=== PATIENT | female | born 1990 | race Caucasian/White ===

== ENCOUNTER 2017-03-21 08:26 | Inpatient (IN) | payer OTHER ==
[~2017-03-21] VITALS: Ht 177.8 cm; Wt 118.0 kg
--- NOTE | 2017-03-28 08:59 | NUR ---
03/28/17 0859 Leah Alicea 0764-PATIENT ARRIVED TO PACU ON RA O2 SAT 95% PATIENT AWAKE DENIES PAIN NAUSEA. DRESSING CDI TO ABDOMEN FUNDUS AT UMBILICUS LIGHT RUBRA DRAINAGE. IV TO LEFT HAND INFUSING WITH LR AND PITOCIN. CHATMAN DRAINING. DAD AT BEDSIDE.
[2017-03-29] MEDS ORDERED: PRENATAL VITAM1 EAC7 PO (04:08)
--- NOTE | 2017-04-24 12:30 | OR ---
[facility] [address] [place], [place] [address] Signed DATE OF OPERATION: 03/28/2017 SURGEON: Thelma Reagan DO. DESULPHURIZER OPERATOR: Ever Malin MD. PREOPERATIVE DIAGNOSES: Term intrauterine . History of prior section. Obesity complicating . POSTOPERATIVE DIAGNOSES: Term intrauterine . History of prior section. Obesity complicating . PROCEDURE PERFORMED: Repeat low transverse section. ANESTHESIA: Spinal. ESTIMATED BLOOD LOSS: 500 mL. COMPLICATIONS: None. FINDINGS: Normal tubes and ovaries bilaterally. Very thin lower uterine segment repaired in two imbricating layers. Viable male born in the VENKAT position with Apgars of 9 and 9 at one and five minutes respectively. Weight is pending. Prior Pfannenstiel skin incision with significant keloid that was excised. COMPLICATIONS: None. INDICATIONS: Ms. Dueñas is a very pleasant 26-year- old, G2, P1, with term intrauterine who presents for scheduled repeat low transverse section. Risks, benefits, and alternatives were discussed in detail with the patient. The patient understands and wished to proceed with the procedure. TECHNIQUE: The patient was taken the operating room. Time-out was performed confirming correct Electronically Signed By: THELMA REAGAN DO 04/24/17 1230 PATIENT NAME: ANGEL DUEÑAS OPERATIVE REPORT DATE OF : 86 PHYSICIAN: THELMA REAGAN DO REPORT #: [id number] REPORT IS CONFIDENTIAL AND NOT TO BE RELEASED WITHOUT AUTHORIZATION [facility] [address] [place], [place] [address] Signed patient, correct procedure. Spinal anesthesia was adequately established. The patient was prepped and draped in the supine position with a bump under the right hip. Ancef 3 g were given preoperatively. ICPs were on and running, no preop heparin was indicated. After testing to ensure spinal anesthesia was adequate, a Pfannenstiel skin incision was made ellipsing out the prior keloid Pfannenstiel scar. Incision was carried down to the fascia in the midline and the fascia was nicked using a surgical scalpel. The fascial incision was extended bilaterally using curved Vale scissors. The fascia was grasped with Houston's and the underlying rectus muscle dissected bluntly and sharply without complication. The rectus muscles were divided in the midline bluntly and the peritoneal was entered sharply . Peritoneal incision was extended using Metzenbaum scissors and blunt dissection. An Gabriel self-retractor was then placed and lower uterine segment was identified and found to be thin. Hysterotomy was performed using a surgical scalpel. Thin clear amniotic fluid was noted. Hysterotomy was extended bilaterally using blunt dissection and the surgeon's hand was placed into the lower uterine segment. The head was elevated in the abdomen and delivered with the assistance of fundal pressure. Loose nuchal cord x1 was identified and reduced without difficulty. The remainder of the delivered with the assistance of fundal pressure without complication. Upon delivery, the was vigorous and cried and the oral nasopharynx were bulb suctioned. The cord was doubly clamped and cut and the handed to the awaiting pediatric team for further care. Cord blood was obtained for routine analysis and the placenta was manually expressed intact with a centrally inserted 3-vessel cord. The uterus was cleared of any remaining products of conception and T clamps were placed in the lower uterine segment and in the corners bilaterally. The uterus was then repaired using 0 Vicryl in a running locked suture. The uterus was noted to be very thin and the lower segment tore easily. The uterus was exteriorized in order to remove tension from the lower uterine segment and to prevent tearing. A second imbricating suture of 0 Monocryl was then applied with good reapproximation hemostasis. One small figure-o f -eight was placed in the midline for a small amount of oozing that was made hemostatic. The pelvis was irrigated and again the incision was found to be hemostatic. Normal tubes and ovaries were identified bilaterally. The uterus was replaced and the perineum was reapproximated with 2-0 Vicryl after placing ACell sheet over the lower uterine segment. The rectus muscles were reapproximated using interrupted sutures of 0 Vicryl. ACell powder was applied to the rectus muscle and rectus muscle was found to be h e mostatic. The fascia was reapproximated using 0 Vicryl in a running, nonlocked manner. ACell powder was applied to the subcutaneous tissue after ensuring hemostasis with Bovie electrocautery and irrigation. The subcutaneous space was reapproximated in 2 layers of 3-0 Vicryl in a running, nonlocked manner. Skin was then reapproximated using Quill suture in a subcuticular stitch with good hemostasis and cosmesis. Cordran tape was applied over the wound to prevent keloid formation. The uterus was then Crede'd for scant blood. The patient was taken to PACU in good and stable condition with her . Electronically Signed By: THELMA REAGAN DO 04/24/17 1230 PATIENT NAME: ANGEL DUEÑAS OPERATIVE REPORT DATE OF : 86 PHYSICIAN: THELMA REAGAN DO REPORT #: [id number] REPORT IS CONFIDENTIAL AND NOT TO BE RELEASED WITHOUT AUTHORIZATION [facility] [address] [place] [address] Signed Sponge, needle, and instrument count was correct x2 at the end the procedure. Dr. Malin was present and participated in all portions of procedure. Thelma Reagan DO JDW/Modl /[id number] Electronically Signed By: THELMA REAGAN DO 04/24/17 1230 PATIENT NAME: JETTANGELShea MIRAMONTES OPERATIVE REPORT DATE OF : 86 PHYSICIAN: THELMA REAGAN DO REPORT #: [id number] REPORT IS CONFIDENTIAL AND NOT TO BE RELEASED WITHOUT AUTHORIZATION
== END 2017-03-30 12:42 | disposition home or self-care (01) | DRG 766 ==
LOC: FBC 03-28 05:02
PROVIDERS: ADMIT Obstetrics & Gynecology
PROC: 10D00Z1 Extraction of Products of Conception, Low, Open Approach (ICD-10-PCS; principal; 2017-03-28 06:45)
DX: O34.211 Maternal care for low transverse scar from previous cesarean delivery (principal); O99.214 Obesity complicating childbirth; O69.81X0 Labor and delivery complicated by cord around neck, without compression, not applicable or unspecified; Z3A.40 40 weeks gestation of pregnancy; Z37.0 Single live birth
CPT/HCPCS: 01961; 36415; 85027; C1763; J0690; J1644; J1885; J2274; J2370; J2405; J2550; J2590; J3010; J7120

== ENCOUNTER 2017-07-10 05:35 | Day surgery (SDC) | payer OTHER ==
[~2017-07-10] VITALS: Ht 177.8 cm; Wt 108.9 kg
[~2017-07-10 05:35] MED LIST: PRENATAL VITAM1 EAC7 PO
--- NOTE | 2017-07-10 09:11 | NUR ---
07/10/17 0911 Christina Olmos 0897 PT WALKED INTO PACU WITH CULVERT INSTALLER. NO 3 LEAD NEEDED AND BLOCK RESOLVED PER CULVERT INSTALLER. PT DENINES PAIN AND NAUSEA. 0903 MD AT BEDSIDE TALKING WITH PT.
--- NOTE | 2017-08-26 10:30 | OR ---
[facility] [address] [place], [place] [address] Signed DATE OF OPERATION: 07/10/2017 SURGEON: Thelma Reagan DO PREOPERATIVE DIAGNOSIS: Left periurethral cyst. POSTOPERATIVE DIAGNOSIS: Left periurethral cyst. PROCEDURES PERFORMED: 1. Excision of periurethral cyst. 2. Cystourethroscopy. ELECTRICIAN JOURNEYMAN WIREMAN: Berkley Rodriguez MD ANESTHESIA: Saddle block plus local anesthetic. ESTIMATED BLOOD LOSS: 10 mL. SPECIMEN: Periurethral cyst. FINDINGS: A 3-4 cm left periurethral cyst causing deviation of the urethra. This was excised completely with good hemostasis. There are poor tissue planes of the cyst and the surrounding tissue medial and superior, normal bladder and urethra on cystourethroscopy. COMPLICATIONS: None. INDICATIONS: Ms. Frausto is a pleasant 26-year-old patient who has a long history of asymptomatic periurethral cyst. This was noticed during her recent and treatment was delayed to the period. The patient was seen and evaluated with Dr. Karishma Rodriguez, Urology, who agrees that this requires surgical excision. Risks, benefits, and alternatives were discussed in detail with the patient. The patient understands and wishes to proceed with the procedure. TECHNIQUE: The patient was taken to the operating room, where a time-out was performed confirming correct patient, correct procedure. Saddle block was established by Anesthesia with excellent effect. The patient was then prepped and draped in the dorsal lithotomy position with her feet in the Yellofin stirrups. ICPs were on and running. No preop antibiotics were indicated and no heparin was indicated. A Samaniego retractor was placed in Electronically Signed By: THELMA REAGAN DO 08/26/17 1030 PATIENT NAME: ANGEL FRAUSTO OPERATIVE REPORT DATE OF : 86 PHYSICIAN: THELMA REAGAN DO REPORT #: [id number] REPORT IS CONFIDENTIAL AND NOT TO BE RELEASED WITHOUT AUTHORIZATION [facility] [address] [place], [place] [address] Signed the vagina after a Webb catheter was placed. A [place] retractor was then placed and retraction clamps placed circumferentially around the introitus to improve visualization. The cyst was noted to be somewhat smaller than previously noted at last examination. The tissue around the cyst was infiltrated and hydrodissected with 0.25% Marcaine with epinephrine. The vaginal epithelium overlying the cyst was incised with a surgical scalpel and the cyst grabbed with smooth pickups, and circumferentially dissected using combination of blunt and sharp dissection. The lateral portion of the cyst dissected easily, but the superior and medial aspects had poor tissue planes and were somewhat more difficult to dissect. Careful attention was made to avoid disruption of the urethra or the internal sphincter. The cyst was then completely excised and appears to be no residual cyst wall left. The wound was made hemostatic with a combination of Bovie electrocautery and FloSeal. The wound was then closed in two layers of 2-0 Vicryl and a final layer of 4-0 Vicryl. There is some very superficial disruption of epithelium right at the opening of the urethra from approximately 4 o'clock to 6 o'clock. The Webb catheter was then removed and cystoscope was advanced under direct visualization to the bladder. Normal bladder, ureteral orifices, and bladder neck were observed. The cystoscope was slowly withdrawn and the patient had a normal urethra. The Webb catheter was reinserted, and the incision was noted again to be hemostatic. The patient was taken to the PACU in good stable condition. Sponge, needle, and instrument count was correct x2 at the end of procedure. Dr. Rodriguez was present and participated in all portions of procedure. Thelma Reagan DO JDW/MODL /[id number] Electronically Signed By: THELMA REAGAN DO 08/26/17 1030 PATIENT NAME: ANGEL FRAUSTO OPERATIVE REPORT DATE OF : 86 PHYSICIAN: THELMA REAGAN DO REPORT #: [id number] REPORT IS CONFIDENTIAL AND NOT TO BE RELEASED WITHOUT AUTHORIZATION
== END 2017-07-10 10:08 | disposition home or self-care (01) ==
LOC: DS 05:35 → OPS 05:35 → DS 06:45 → OPS 10:08
PROVIDERS: Obstetrics & Gynecology
PROC: 0TBD0ZX Excision of Urethra, Open Approach, Diagnostic (ICD-10-PCS; principal; 2017-07-10 06:45)
DX: N36.8 Other specified disorders of urethra (principal); Z90.89 Acquired absence of other organs; Z98.890 Other specified postprocedural states
CPT/HCPCS: 00910; J7120